=== PATIENT | male | born 2000 | race Caucasian/White ===

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

== ENCOUNTER 2023-01-08 15:23 | Emergency (ER) | payer MEDICAID ==
[~2023-01-08] VITALS: Ht 180.3 cm; Wt 77.3 kg
[2023-01-08 15:26] VITALS: TEMP 98
[2023-01-08] MEDS ORDERED: HYDR-4723 PO (18:17)
[2023-01-08 18:25] VITALS: BP 115/71; PULSE 64; RESP 14
[2023-01-08] MEDS ORDERED: PERCT PO (20:49)
== END 2023-01-08 18:54 | disposition still patient (30) ==
LOC: EMS 15:23
DX: S92.252A Displaced fracture of navicular [scaphoid] of left foot, initial encounter for closed fracture (principal); F17.210 Nicotine dependence, cigarettes, uncomplicated; F12.90 Cannabis use, unspecified, uncomplicated; X58.XXXA Exposure to other specified factors, initial encounter; Y93.61 Activity, american tackle football; Y92.89 Other specified places as the place of occurrence of the external cause; Y99.8 Other external cause status
CPT/HCPCS: 99283